=== PATIENT | female | born 1980 | race Caucasian/White ===

== ENCOUNTER → 2018-06-21 12:26 | Outpatient (CLI) | payer OTHER, SELFPAY ==
--- NOTE | 2018-06-21 12:32 | XR_ITS ---
XR foot LT min 3V HISTORY: ITS.REASON: pain ORDERING PHYSICIAN: Viola Lazaro PATIENT AGE: 38 years COMPARISON: None FINDINGS: There is a short fourth metatarsal. The phalanges of the fourth toe have an unremarkable appearance. There is some mild dorsiflexion of the fourth toe. No bony erosive process evident. IMPRESSION: Brachymetatarsia CT of the fourth metatarsal. This can be seen with trisomy 21, Alan syndrome, pseudohyperparathyroidism among other less common etiologies
[2018-06-21 13:15] LABS: Basophils % 0.5 % (0.1-2.0); Eosinophils # 0.2 K/mm3 (0.0-0.4); Eosinophils % 2.5 % (0.1-12.0); Hematocrit 40.2 % (37.0-47.0); Hemoglobin 13.2 g/dL (12.2-16.2); Lymphocytes # 2.5 K/mm3 (0.7-4.5); Lymphocytes % 35.8 % (10-50); Mean Corpuscular HGB Conc 32.8 g/dL (31.8-35.4); Mean Corpuscular Hemoglobin 32.1 pg (27.0-31.2); Mean Corpuscular Volume 97.8 fl (81-99); Mean Platelet Volume 7.4 fl (7.4-10.4); Monocytes # 0.4 K/mm3 (0.1-1.0); Monocytes % 5.2 % (1.7-9.3); Neutrophils # 3.9 K/mm3 (1.8-7.8); Platelet Count 314 K/mm3 (142-424); Red Blood Count 4.11 M/mm3 (4.20-5.40); Red Cell Distribution Width 12.9 % (11.5-17.5)
[2018-06-21 14:14] LABS: Erythrocyte Sedimentation Rate 16 mm/hr (0-20)
[2018-06-21 14:24] LABS: Alanine Aminotransferase 35 U/L (12-78); Albumin Level 3.7 gm/dL (3.4-5.0); Albumin/Globulin Ratio 1.1 (1.1-1.8); Alkaline Phosphatase 72 U/L (46-116); Anion Gap 12.4 mEq/L (5-15); Aspartate Amino Transferase 15 U/L (15-37); Bilirubin,Total 0.2 mg/dL (0.2-1.0); Blood Urea Nitrogen 8 mg/dL (7-18); C-Reactive Protein 1.2 mg/L (0.0-0.9); Calcium 9.1 mg/dL (8.5-10.1); Carbon Dioxide 28 mmol/L (21.0-32.0); Chloride 106 mmol/L (98-107); Creatinine,Serum 0.69 mg/dL (0.55-1.02); Estimated Glomerular Filt Rate 94 ml/min (>60); Free T4 (Free Thyroxine) 0.87 ng/dl (0.76-1.46); GFR (African American) 114 ML/MIN (>60); Globulin 3.3 gm/dl (1.3-3.2); Glucose 90 mg/dL (74-106); Potassium 4.4 mmoL/L (3.5-5.1); Sodium 142 mmol/L (136-145); Thyroid Stimulating Hormone 0.89 uIU/ml (0.358-3.740)
[2018-06-22 13:11] LABS: Anti-Centromere B Antibodies <0.2 AI (0.0-0.9); Anti-Jo-1 <0.2 AI (0.0-0.9); Anti-Smith Antibody <0.2 AI (0.0-0.9); Antichromatin Antibodies <0.2 AI (0.0-0.9); Antiscleroderma-70 Antibodies <0.2 AI (0.0-0.9); RNP Antibodies <0.2 AI (0.0-0.9); Sjogren's Anti-SS-A <0.2 AI (0.0-0.9); Sjogren's Anti-SS-B <0.2 AI (0.0-0.9)
[2018-06-23 02:50] LABS: PTT-LA 37.3 sec (0.0-51.9)
[2018-06-23 06:56] LABS: Anti-Cyclic Citrullinated Pept 9 units (0-19); Anti-DNA (DS) Ab Qn 1 IU/mL (0-9); RA Latex Turbid. <10.0 IU/mL (0.0-13.9); Vitamin D 25 Hydroxy 17.1 ng/mL (30.0-100.0)
[2018-06-23 06:57] LABS: Lupus Reflex Interpretation Comment: (.)
== END ==
PROVIDERS: PCP Emergency Medicine; Visit Provider Nurse Practitioner Family
DX: M25.562 Pain in left knee (principal); M25.561 Pain in right knee; M79.672 Pain in left foot; M25.50 Pain in unspecified joint; R53.83 Other fatigue; M79.89 Other specified soft tissue disorders
CPT/HCPCS: 36415; 73630; 80053; 82652; 83880; 84439; 84443; 85025; 85613; 85651; 86140; 86200; 86225; 86235; 86431

== ENCOUNTER → 2018-06-24 11:08 | Outpatient (CLI) | payer OTHER, SELFPAY ==
--- NOTE | 2018-06-24 11:46 | XR_ITS ---
XR knee LT 2V HISTORY: ITS.REASON: leg pain ORDERING PHYSICIAN: Jeremy Gibbs APRN PATIENT AGE: 38 years COMPARISON: None FINDINGS: Weightbearing views performed No fracture or dislocation. No lytic or blastic change. Normal mineralization. No significant arthritic changes evident. No other significant findings IMPRESSION: Negative Knee
--- NOTE | 2018-06-24 11:46 | XR_ITS ---
XR knee RT 2V HISTORY: ITS.REASON: leg pain ORDERING PHYSICIAN: Jeremy Gibbs APRN PATIENT AGE: 38 years COMPARISON: None FINDINGS: Weight bearing views are performed No fracture or dislocation. No lytic or blastic change. Normal mineralization. No significant arthritic changes evident. No other significant findings IMPRESSION: Negative Knee
--- NOTE | 2018-06-24 12:18 | NVE_ITS ---
Venous Exam Indications: 729.5 Pain in limb. IMPRESSIONS 1. There is no evidence of significant Reflux. 2. No evidence of deep or superficial vein thrombosis involving the right lower extremity and left lower extremity Complete lower extremity venous duplex evaluation. Doppler flow study including spectral analysis, color and finch scale imaging. Location: Vascular laboratory. Patient status: Outpatient. Tables: Venous flow and imaging: + +-------+ + Location Overall Flow properties + +-------+ + Right common femoral Patent Normal phasicity; spontaneous; normal augmentation; compressible + +-------+ + Right saphenofemoral junction Patent Compressible + +-------+ + Right profunda femoral Patent Compressible + +-------+ + Right femoral Patent Normal phasicity; spontaneous; normal augmentation; compressible; no reflux + +-------+ + Right greater saphenous Patent Normal phasicity; spontaneous; normal augmentation; compressible + +-------+ + Right popliteal Patent Normal phasicity; spontaneous; normal augmentation; compressible + +-------+ + Right posterior tibial Patent Compressible + +-------+ + Right peroneal Patent Compressible + +-------+ + Right gastrocnemius Patent Compressible + +-------+ + Right soleal Patent Compressible + +-------+ + Left common femoral Patent Normal phasicity; spontaneous; normal augmentation; compressible + +-------+ + Left saphenofemoral junction Patent Compressible + +-------+ + Left profunda femoral Patent Compressible + +-------+ + Left femoral Patent Normal phasicity; spontaneous; normal augmentation; compressible + +-------+ + Left greater saphenous Patent Normal phasicity; spontaneous; normal augmentation; compressible + +-------+ + Left popliteal Patent Normal phasicity; spontaneous; normal augmentation; compressible + +------
== END ==
PROVIDERS: PCP Emergency Medicine; Visit Provider Nurse Practitioner Family
DX: M79.605 Pain in left leg (principal); M79.604 Pain in right leg; M79.672 Pain in left foot; M25.562 Pain in left knee; M25.561 Pain in right knee
CPT/HCPCS: 73560; 93970

== ENCOUNTER 2018-06-25 20:08 | Emergency (ER) | payer OTHER, SELFPAY ==
[2018-06-25 20:09] VITALS: BP 108/61; PULSE 75; RESP 16; TEMP 36.8; O2SAT 98; BMI 28.8
--- NOTE | 2018-06-25 21:48 | CT_ITS ---
CT lumbar spine w con INDICATION: Bilateral leg pain, pain in size ITS.REASON: bilateral leg pain ORDERING PHYSICIAN: Florencio Blanco MD PATIENT AGE: 38 years COMPARISON: None TECHNIQUE: Axial images obtained with sagittal and coronal reformats. All CT scans at the facility use one or more dose reduction, viz: automated exposure control, ma/kV adjustment per patient size (including targeted exams where dose is matched to indication, i.e. head), or iterative reconstruction technique. FINDINGS: There is normal curvature and alignment. All lumbar vertebrae appear intact. Disc spaces are well maintained throughout. The spinal canal is normal size throughout the lumbar spine. The L1-2, L2-3 and L3-4 disc appear normal. There is a small to moderate focal central disc protrusion L4-5 causing only slight narrowing of the neural foramina bilaterally. There is a mild diffuse disc bulge L5-S1. There is no significant facet hypertrophy. IMPRESSION: Gxsli-we-pluvyhza sized central disc protrusion L4-5 and mild diffuse disc bulge L5-S1, I basically agree with the [facility] report
--- NOTE | 2018-06-25 21:48 | CT_ITS ---
CT abdomen pelvis w con INDICATION: . Leg pain. Pelvic pain. ITS.REASON: bilateral leg pain ORDERING PHYSICIAN: Florencio Blanco MD PATIENT AGE: 38 years COMPARISON: L-spine from today . TECHNIQUE: 75 cc Optiray the right 350. No oral contrast. Axial images obtained with sagittal and coronal reformats. All CT scans at the facility use one or more dose reduction, viz: automated exposure control, ma/kV adjustment per patient size (including targeted exams where dose is matched to indication, i.e. head), or iterative reconstruction technique. FINDINGS: Lower thorax. The lung bases are clear no active disease. Heart normal size Abdomen Liver.: A low-density area is seen at the dome of the left lobe low-density. This ovoid well delineated area measures up to 2.8 cm transverse x 2 cm AP x 2 cm height. Suggest ultrasound as next up and further evaluate. It is not a cyst then then follow-up CT evidence in 3 months with hemangioma protocol would be in order; or MRI liver Cholecystectomy. No significant biliary ductal dilatation. Pancreas appears satisfactory. No lesion no ductal dilatation. Spleen unremarkable. Adrenals unremarkable. TRACT. kidneys appear normal in size and configuration. No calculi nor obstruction . Ureters are unremarkable. Pelvis. uterus generous size measuring 8.4 seem in length. Period generous endometrial stripe measuring over 1 cm AP. Mild enhancement about the base the endometrial, likely reflect phase of menstrual cycle. Generous pelvic veins. Right ovary 3 cm with numerous follicles. Left ovary slightly smaller. GI TRACT. Colonic diverticulosis. Numerous diverticuli most evident throughout the sigmoid colon with a few at the left colon. No diverticulitis. Moderate stool right and transverse colon. Appendix is normal. Terminal ileum unremarkable. No pelvic adenopathy no retroperitoneal nor mesenteric adenopathy. Small bowel. Slight fluid-filled proximal small bowel loops which are upper normal in caliber. Stomach- moderately distended with fluid and food. Osseous. Referred to the CT lumbar report. Again note Moderate central disc protrusion L4/5. ...IMPRESSION.......... 1. No acute findings abdomen or pelvis.Appendix normal. ... No bowel dilatation nor obstruction. Upper normal fluid proximal small bowel. ... No adenopathy or significant mass. 2.Low-density lesion dome of of left lobe of liver. 28mm x 20 mmx 12 mm.. Suggest ultrasound as next up to further survey. If solid & not benign hepatic cyst) may require follow-up CT or MR 3.. Central disc protrusion L4/5 again noted as discussed on CT lumbar report 4. Colonic diverticulosis most evident sigmoid colon. No Diverticulitis. 5. Moderately distended fluid &/food filled stomach noted. Slight increase fluid proximal small bowel currently..
[2018-06-25 21:53] LABS: Microscopic, Urine URINE MICROSCOPIC (MICROSCOPIC)
[2018-06-25 21:56] LABS: Appearance,Urine CLEAR (Clear); Bilirubin,Urine Negative (Negative); Blood, Urine Negative (Negative); Color,Urine YELLOW (Yellow); Glucose,Urine (UA) Negative (Negative); Ketones,Urine Negative (Negative); Leukocyte Esterase,Urine Negative (Negative); Nitrate,Urine Negative (Negative); Protein,Urine Negative (Negative); Specific Gravity, Urine 1.015 (1.005-1.030); Urobilinogen,Urine 0.2 EU/dl (0.2)
[2018-06-25 21:58] LABS: Basophils % 0.3 % (0.1-2.0); Eosinophils # 0.1 K/mm3 (0.0-0.4); Eosinophils % 0.5 % (0.1-12.0); Hematocrit 40.1 % (37.0-47.0); Hemoglobin 13.4 g/dL (12.2-16.2); Lymphocytes # 3.4 K/mm3 (0.7-4.5); Mean Corpuscular HGB Conc 33.5 g/dL (31.8-35.4); Mean Corpuscular Hemoglobin 31.7 pg (27.0-31.2); Mean Corpuscular Volume 94.8 fl (81-99); Mean Platelet Volume 7.3 fl (7.4-10.4); Monocytes # 0.6 K/mm3 (0.1-1.0); Monocytes % 4.7 % (1.7-9.3); Neutrophils # 8.5 K/mm3 (1.8-7.8); Neutrophils % 67.5 % (37.0-80.0); Platelet Count 360 K/mm3 (142-424); Red Blood Count 4.23 M/mm3 (4.20-5.40); Red Cell Distribution Width 12.9 % (11.5-17.5); White Blood Count 12.7 K/mm3 (4.8-10.8)
[2018-06-25 21:59] LABS: Urine Pregnancy, HCG Qual. Negative (Negative)
[2018-06-25 22:03] LABS: Bacteria,Urine 1+ /lpf; WBC,Urine Occasional #/hpf (0-3)
--- NOTE | 2018-06-25 22:05 | [facility].EDGENADL ---
ED Disposition Clinical Impression: Lumbar disc disease with radiculopathy Disposition: Home, Self-Care Condition on Discharge: Good Instructions: DI for Lumbar Radiculopathy Additional Instructions: use meds and see pcp for follow up Prescriptions: Gabapentin [Neurontin 100mg cap] 100 mg PO TID #30 cap Referrals: Florencio Blanco MD [Primary Care Provider] - - Critical Care Critical Care Time: No Attestation: On 06/25/18, the high probability of a clinically significant, sudden or life threatening deterioration of the following system(s) required my full and direct attention, intervention and personal management. The time I documented below is in addition to time spent performing reported procedures but includes the following listed in this critical care notation. Medical Decision Making - Medical Records Medical records reviewed: Yes: I reviewed the patient's medical records. - See Inquiry Pt receiving controlled substance: No Vital Signs: 06/25/18 20:09 06/25/18 22:09 06/25/18 23:30 Temperature 98.2 F Temperature Source Oral Pulse Rate [Right Brachial] 75 70 59 L Respiratory Rate 16 20 16 Blood Pressure [Right Arm] 108/61 L 120/67 109/68 L Blood Pressure Mean [Right Arm] 76 84 81 Blood Pressure Source [Right Arm] Automatic Cuff Automatic Cuff Automatic Cuff Blood Pressure Position [Right Arm] Sitting Sitting Sitting 02 Sat by Pulse Oximetry 98 100 100 Oxygen Delivery Method Room Air Room Air Room Air - Lab Data Lab results reviewed: Yes: I reviewed the patient's lab results. Lab Results 06/25/18 20:39: Urine Color Yellow, Urine Appearance Clear, Urine pH 6.0, Ur Specific [place] 1.015, Urine Protein Negative, Urine Glucose (UA) Negative, Urine Ketones Negative, Urine Blood Negative, Urine Nitrate Negative, Urine Bilirubin Negative, Urine Urobilinogen 0.2, Ur Leukocyte Esterase Negative, Urine WBC Occasional, Ur Squamous Epith Cells 5-10, Urine Bacteria 1+ 06/25/18 20:39: WBC 12.7 H, RBC 4.23, Hgb 13.4, Hct 40.1, MCV 94.8, MCH 31.7 H, MCHC 33.5, RDW 12.9, Plt Count 360, MPV 7.3 L, Neut % (Auto) 67.5, Lymph % (Auto) 27.0, [place] % (Auto) 4.7, Eos % (Auto) 0.5, Baso % (Auto) 0.3, Neut # (Auto) 8.5 H, Lymph # (Auto) 3.4, [place] # (Auto) 0.6, Eos # (Auto) 0.1, Baso # (Auto) 0.0, ESR 13 06/25/18 20:39: Urine HCG, Qual Negative 06/25/18 20:39: Sodium 139, Potassium 3.6, Chloride 104, Carbon Dioxide 28, Anion Gap 10.6, BUN 12, Creatinine 0.78, Estimated Creat Clear 95, Estimated GFR 82, Est GFR ( Amer) 99, Glucose 88, Calcium 8.9, Total Bilirubin 0.1 L, AST 13 L, ALT 32, Alkaline Phosphatase 62, C-Reactive Protein < 0.2, Total Protein 7.4, Albumin 3.8, Globulin 3.6 H, Albumin/Globulin Ratio 1.1 Result diagrams: 06/25/18 20:39 06/25/18 20:39 Orders (Tests/Meds): ED MEDICATIONS Discontinued Medications Generic Name Dose Route Start Last Admin Trade Name Freq PRN Reason Stop Dose Admin Ioversol 150 ml 06/25/18 23:15 06/25/18 23:17 Rad-Optiray 350 100ml Vial IV 06/25/18 23:16 150 ml ONCE ONE Administration Protocol Sodium Chloride 20 ml 06/25/18 23:15 06/25/18 23:17 Rad-Saline Flush 10ml Syringe IV 06/25/18 23:16 20 ml ONCE ONE Administration ORDERS Category Date Time Status CT abdomen pelvis w con Stat Cat Scan 06/25/18 21:[address] lumbar spine w con Stat Cat Scan 06/25/18 21:48 Taken - CT Data CT Scan: Abdomen, Pelvis, L-Spine Time Received: 23:[address] Reviewed: Yes: I have viewed the radiologist's interpretation Preliminary Findings: Abnormal (see report ), No Fracture Seen General Adult HPI - General Chief complaint: PAIN Stated complaint: Pain both legs Time Seen by Provider: 06/25/18 21:40 Mode of Arrival: Ambulatory Source of Information: Patient, Significant Other, Medical Record Limitations: No Limitations Description of Symptoms (Recalled from ER Triage Doc. by RN): Pt c/o bilateral leg pain from her thighs up. Advises
[2018-06-25 22:08] LABS: Alanine Aminotransferase 32 U/L (12-78); Albumin Level 3.8 gm/dL (3.4-5.0); Albumin/Globulin Ratio 1.1 (1.1-1.8); Alkaline Phosphatase 62 U/L (46-116); Anion Gap 10.6 mEq/L (5-15); Aspartate Amino Transferase 13 U/L (15-37); Bilirubin,Total 0.1 mg/dL (0.2-1.0); Blood Urea Nitrogen 12 mg/dL (7-18); C-Reactive Protein < 0.2 mg/L (0.0-0.9); Calcium 8.9 mg/dL (8.5-10.1); Carbon Dioxide 28 mmol/L (21.0-32.0); Chloride 104 mmol/L (98-107); Creatinine Clearance Estimated 95 mL/min (50-200); Creatinine,Serum 0.78 mg/dL (0.55-1.02); Estimated Glomerular Filt Rate 82 ml/min (>60); GFR (African American) 99 ML/MIN (>60); Globulin 3.6 gm/dl (1.3-3.2); Glucose 88 mg/dL (74-106); Potassium 3.6 mmoL/L (3.5-5.1); Sodium 139 mmol/L (136-145); Total Protein,Serum 7.4 gm/dL (6.4-8.2)
[2018-06-25 22:09] VITALS: BP 120/67; PULSE 70; RESP 20; O2SAT 100
--- NOTE | 2018-06-25 22:34 | PC.NURSE ---
pt gone to CT
[2018-06-25 22:39] LABS: Erythrocyte Sedimentation Rate 13 mm/hr (0-20)
--- NOTE | 2018-06-25 23:02 | PC.NURSE ---
Pt returned from CT
[2018-06-25 23:30] VITALS: BP 109/68; PULSE 59; RESP 16; O2SAT 100
[2018-06-26 00:11] VITALS: BP 109/68; PULSE 59; RESP 16; TEMP 36.8; O2SAT 100
== END 2018-06-26 00:10 | disposition home or self-care (01) ==
PROVIDERS: Emergency Provider Emergency Medicine; PCP Emergency Medicine
DX: M51.16 Intervertebral disc disorders with radiculopathy, lumbar region (principal); F17.210 Nicotine dependence, cigarettes, uncomplicated
CPT/HCPCS: 72132; 74177; 80053; 81001; 81025; 85025; 85651; 86140; 99283; Q9967

== ENCOUNTER → 2018-07-15 09:54 | Outpatient (CLI) | payer OTHER, SELFPAY ==
--- NOTE | 2018-07-15 09:58 | XR_ITS ---
XR knee RT 4V HISTORY: ITS.REASON: right knee pain/ 4views weightbearing ORDERING PHYSICIAN: Stephen Pablo MD PATIENT AGE: 38 years COMPARISON: None FINDINGS: No fracture or dislocation. No lytic or blastic change. Normal mineralization. No significant arthritic changes evident. No other significant findings IMPRESSION: Negative Knee
--- NOTE | 2018-07-15 09:58 | XR_ITS ---
XR knee LT 4V HISTORY: Left knee pain ITS.REASON: left knee pain/ 4 views weightbearing ORDERING PHYSICIAN: Stephen Pablo MD PATIENT AGE: 38 years COMPARISON: None FINDINGS: No fracture or dislocation. No lytic or blastic change. Normal mineralization. No significant arthritic changes evident. No other significant findings IMPRESSION: Negative Knee
== END ==
PROVIDERS: PCP Emergency Medicine; Visit Provider Orthopaedic Surgery
DX: M25.561 Pain in right knee (principal); M25.562 Pain in left knee
CPT/HCPCS: 73564

== ENCOUNTER → 2018-07-29 07:59 | Outpatient (CLI) | payer OTHER, SELFPAY ==
--- NOTE | 2018-07-29 08:00 | MR_ITS ---
MR lumbar spine wo con, MR 3-d myelogram/MRCP HISTORY: LBP. Intermittent Bilateral leg pain when walking. [id number]. No trauma. ITS.REASON: Low back pain ORDERING PHYSICIAN: Jeremy Gibbs APRN PATIENT AGE: 38 years Comparison: CT 06-25-18. TECHNIQUE: Standard multiplanar multiecho sequences are performed without contrast. 3-D MIP and myelographic images are also rendered and reviewed FINDINGS: There is normal alignment. The spinal cord ends at the L1-L2 level. L1-L2: Unremarkable. L2-L3: Mild facet hypertrophic change. L3-L4: Mild facet hypertrophic change. L4-5: Bulging disc with a small central disc protrusion very slightly eccentric toward the left. No nerve displacement. There is disc desiccation at this level. There is mild facet and ligamentum flavum hypertrophy with mild bilateral the lateral recess and foraminal narrowing. L5-S1: Minimal bulging disc. No fracture or dislocation. No lytic or blastic change IMPRESSION: 1. Bulging disc at L4-5 with a small central disc protrusion very slightly eccentric toward the left. No nerve displacement. There is disc desiccation with mild facet and ligamentum flavum hypertrophy and with mild bilateral the lateral recess and foraminal narrowing. 2. Minimal bulging at L5-S1. 3. Mild facet and ligamentum flavum hypertrophic changes
== END ==
PROVIDERS: PCP Emergency Medicine; Visit Provider Nurse Practitioner Family
DX: M51.16 Intervertebral disc disorders with radiculopathy, lumbar region (principal)
CPT/HCPCS: 72148; 76376

== ENCOUNTER → 2018-08-31 13:37 | Outpatient (CLI) | payer OTHER, SELFPAY ==
[2018-08-31 14:09] LABS: Amphetamine/Metha Screen,Urine Negative ng/mL (<1000); Barbiturates Screen,Urine Negative ng/mL (<200); Benzodiazepines Screen,Urine Negative ng/mL (<200); Cannabinoid Screen,Urine Positive ng/mL (<50); Cocaine Screen,Urine Negative ng/mL (<300); Methadone Screen,Urine Negative ng/mL (<300); Opiate Screen,Urine Negative ng/mL (<300); Phencyclidine Screen,Urine Negative ng/mL (<25)
== END ==
PROVIDERS: Visit Provider Nurse Practitioner Family
DX: Z79.899 Other long term (current) drug therapy (principal)
CPT/HCPCS: 80305

== ENCOUNTER → 2019-01-12 14:58 | Outpatient (CLI) | payer OTHER, SELFPAY ==
--- NOTE | 2019-01-12 15:02 | XR_ITS ---
PROCEDURE: XR RIBS LT MIN 3V W CXR1V CLINICAL INDICATION: Left rib injury Posttraumatic pain COMPARISON: No exams were available for comparison FINDINGS: A frontal view of the chest shows no acute finding. Multiple views of the left ribs were obtained. There is some minimal cortical regularity involving the posterior lateral aspect of the left 9th rib which may be due to nondisplaced fracture. No displaced rib fractures or other significant anomalies are evident. IMPRESSION: Possible nondisplaced fracture left 9th rib otherwise negative Dictated by: Agapito To MD 01/12/2019 16:02 Electronically signed by Agapito To MD in [place] 01/12/2019 16:02
== END ==
PROVIDERS: PCP Emergency Medicine; Visit Provider Nurse Practitioner Family
DX: R07.81 Pleurodynia (principal)
CPT/HCPCS: 71101

== ENCOUNTER → 2020-03-07 10:44 | Outpatient (CLI) | payer OTHER, SELFPAY ==
--- NOTE | 2020-03-07 10:51 | XR_ITS ---
PROCEDURE: XR CHEST 2V CLINICAL HISTORY: R Post rib pain COMPARISON: CR XR RIBS LT MIN 3V W CXR1V from 01/12/2019 FINDINGS: The cardiomediastinal silhouette and pulmonary vascularity are within normal limits. The lungs are clear without infiltrates, suspicious nodules, or pleural effusions. No acute bony abnormalities. There is no obvious acute rib fracture however right rib fractures are strongly suspected clinically than oblique right rib films would be helpful. IMPRESSION: No acute findings. Dictated by: Dr. Rudy Carter MD 03/07/2020 11:17 Dr. Rudy Carter MD in [place] 03/07/2020 11:17
== END ==
PROVIDERS: PCP Nurse Practitioner Family; Visit Provider Nurse Practitioner Family
DX: F17.200 Nicotine dependence, unspecified, uncomplicated (principal)
CPT/HCPCS: 71046

== ENCOUNTER → 2020-05-01 09:19 | Outpatient (CLI) | payer OTHER, SELFPAY ==
[2020-05-02 09:50] LABS: Coronavirus 19 IgG Antibody Negative (Negative); Coronavirus 19 IgM Antibody Negative (Negative)
== END ==
PROVIDERS: Visit Provider Nurse Practitioner Family
DX: Z20.822 Contact with and (suspected) exposure to COVID-19 (principal)
CPT/HCPCS: 86328

== ENCOUNTER → 2020-05-01 14:47 | Outpatient (CLI) | payer OTHER, SELFPAY | PROVIDERS: PCP Nurse Practitioner Family; Visit Provider Nurse Practitioner Family | DX: Z20.822 Contact with and (suspected) exposure to COVID-19 (principal) | CPT/HCPCS: U0003 ==

== ENCOUNTER → 2020-05-02 13:05 | Outpatient (CLI) | payer OTHER, SELFPAY ==
[2020-05-02 13:08] LABS: Adenovirus F 40/41, stool Not Detected (NotDetected); Astrovirus Not Detected (NotDetected); Campylobacter Not Detected (NotDetected); Clostridium Difficile A/B, PCR Not Detected (NotDetected); Cryptosporidium Not Detected (NotDetected); Cyclospora Cayetanesis Not Detected (NotDetected); Entamoeba histolytica Not Detected (NotDetected); Enteroaggregative E coli Not Detected (NotDetected); Enteropathogenic E coli Not Detected (NotDetected); Enterotoxigenic E coli Not Detected (NotDetected); Giardia lamblia Not Detected (NotDetected); Norovirus Not Detected (NotDetected); Plesimonas Shigalloides, PCR Not Detected (NotDetected); Rotavirus A Not Detected (NotDetected); Salmonella, PCR Not Detected (NotDetected); Sapovirus Not Detected (NotDetected); Shiga-like toxin E coli Not Detected (NotDetected); Shigella Enterovasive E coli Not Detected (NotDetected); Vibrio Cholerae Not Detected (NotDetected); Vibrio, PCR Not Detected (NotDetected); Yersinia Entercolitica, PCR Not Detected (NotDetected)
== END ==
PROVIDERS: Visit Provider Nurse Practitioner Family
DX: R19.7 Diarrhea, unspecified (principal); R50.9 Fever, unspecified
CPT/HCPCS: 87507

== ENCOUNTER → 2020-07-12 09:38 | Outpatient (CLI) | payer OTHER, SELFPAY ==
--- NOTE | 2020-07-12 09:38 | MM_ITS ---
PROCEDURE INFORMATION: Exam: MG Screening 3D Mammography Exam date and time: 07/12/2020 9:38 AM Age: 40 years old Clinical indication: Breast cancer screening TECHNIQUE: Imaging protocol: Screening tomosynthesis and 2D mammography including computer-aided detection (CAD) when performed. COMPARISON: No relevant prior studies available. FINDINGS: MAMMOGRAPHY: Breast composition: The breast tissue is composed of scattered areas of fibroglandular density. Mass: None. Architectural distortion: None. Calcifications: No suspicious calcifications. Asymmetric density: None. Skin thickening: None. Axillary adenopathy: None. IMPRESSION: No mammographic evidence of malignancy. Annual screening is recommended unless otherwise clinically indicated. ASSESSMENT: BI-RADS Category 1: Negative
== END ==
PROVIDERS: PCP Nurse Practitioner Family; Visit Provider Nurse Practitioner Family
DX: Z12.31 Encounter for screening mammogram for malignant neoplasm of breast (principal)
CPT/HCPCS: 77063; 77067

== ENCOUNTER → 2020-08-28 13:42 | Outpatient (CLI) | payer OTHER, SELFPAY ==
[2020-08-28 13:54] LABS: Basophils # 0.1 K/mm3 (0-0.2); Basophils % 0.7 % (0.1-2.0); Eosinophils # 0.2 K/mm3 (0.0-0.4); Eosinophils % 1.8 % (0.1-12.0); Hematocrit 42.7 % (37.0-47.0); Hemoglobin 14.4 g/dL (12.2-16.2); Lymphocytes # 2.9 K/mm3 (0.7-4.5); Lymphocytes % 30.8 % (10-50); Mean Corpuscular HGB Conc 33.8 g/dL (31.8-35.4); Mean Corpuscular Hemoglobin 32.1 pg (27.0-31.2); Mean Platelet Volume 8.3 fl (7.4-10.4); Monocytes # 0.6 K/mm3 (0.1-1.0); Monocytes % 6.3 % (1.7-9.3); Neutrophils # 5.6 K/mm3 (1.8-7.8); Neutrophils % 60.4 % (37.0-80.0); Platelet Count 380 K/mm3 (142-424); Red Blood Count 4.49 M/mm3 (4.20-5.40); Red Cell Distribution Width 13.1 % (11.5-17.5); White Blood Count 9.3 K/mm3 (4.8-10.8)
[2020-08-28 13:59] LABS: Alanine Aminotransferase 20 U/L (12-78); Albumin Level 4.4 g/dl (3.5-5.0); Albumin/Globulin Ratio 1.6 (1.1-1.8); Alkaline Phosphatase 72 U/L (38-126); Aspartate Amino Transferase 23 U/L (14-36); Bilirubin,Total 0.5 mg/dl (0.2-1.3); Blood Urea Nitrogen 10 mg/dl (7-17); Calcium 9.4 mg/dl (8.4-10.2); Carbon Dioxide 29 mmol/L (22.0-30.0); Chloride 105 mmol/L (98-107); Cholesterol 187 mg/dl (140-200); Estimated Glomerular Filt Rate 92 ml/min (>60); GFR (African American) 111 ML/MIN (>60); Globulin 2.8 g/dL (1.3-3.2); Glucose 87 mg/dl (74-100); HDL Cholesterol 47 mg/dl (40-60); Sodium 139 mmol/L (136-145); Total Protein,Serum 7.2 g/dl (6.3-8.2); Triglycerides 136 mg/dl (30-150); VLDL Cholesterol 27 mg/dL (0-40)
[2020-08-28 14:10] LABS: Direct LDL Cholesterol 119.68 mg/dL (100-129)
[2020-08-28 14:15] LABS: 25-OH Vitamin D, Total 21.5 ng/mL (30-100)
[2020-08-28 14:16] LABS: T4 (Thyroxine) 7.7 ug/dl (5.53-11.0)
[2020-08-28 14:30] LABS: Thyroid Stimulating Hormone 0.78 uIU/mL (0.465-4.68)
== END ==
PROVIDERS: Visit Provider Nurse Practitioner Family
DX: R07.9 Chest pain, unspecified (principal); E55.9 Vitamin D deficiency, unspecified
CPT/HCPCS: 80053; 80061; 82306; 84436; 84443; 85025

== ENCOUNTER → 2020-09-10 13:33 | Outpatient (CLI) | payer OTHER, SELFPAY ==
--- NOTE | 2020-09-10 14:19 | CA_ITS ---
APPROVED REPORT Exam: Exercise Treadmill Technologist: Aditi Albarran, Ht: 5 ft 4 in Wt: 142 lbs BSA: 1.69 m2 HR: 76 bpm BP: 110/63 mmHg Medical History Medications: Albuterol,,,,, Stress Test Details Test: Kt HR Resting HR: 83 bpm Max Heart Rate (APMHR): 178.498701 bpm Max HR Achieved: 150 bpm Target HR (85% APMHR): 151.081072 bpm % of APMHR: 84.27 Recovery HR: 86 bpm BP Resting BP: 118/76 mmHg Max BP: 154/76 mmHg Recovery BP: 118.0/74.0 mmHg ECG Resting ECG: NSR, normal Clinical Exercise duration: 06:52 min Highest Stage Achieved: Exercise capacity: 10.1 METs Stress ECG Conclusion Exercised 6:52 on Kt Protocol, stopping due to leg pain/fatigue. Max HR: 150 %of PM: 84% Max BP: 154/76 METs': 10.1 Test stopped due to: Leg pain/fatigue Symptoms: No CP Arrythmias/Ectopy: None ST-T Changes: within normal ST response to exercise Conclusion: Normal GXT to HR achieved. GXT only (no imaging). Test Summary RECOVERY 02:00 0.0 0.0 108 . 154/ 76 . . Stage 1 01:00 10.0 1.7 110 . . . . Stage 1 02:00 10.0 1.7 119 . . . . Stage 1 03:00 10.0 1.7 119 . 135/ 80 . . Stage 2 01:00 12.0 2.5 132 . . . . Stage 2 02:00 12.0 2.5 138 . . . . Stage 2 03:00 12.0 2.5 141 . 150/ 78 . . Stage 3 00:52 14.0 3.4 149 . . . Stop exercise at 06:52 RECOVERY 01:00 0.0 0.0 120 . 154/ 76 . . RECOVERY 02:00 0.0 0.0 108 . 154/ 76 . . RECOVERY 03:00 0.0 0.0 94 . 127/ 75 . . RECOVERY 04:00 0.0 0.0 90 . 127/ 75 . . RECOVERY 05:00 0.0 0.0 86 . 118/ 74 . . RECOVERY 05:18 0.0 0.0 87 . 118/ 74 . . Electronically signed by : Jovanni Gilliland, 09/10/2020 17:39:08
== END ==
PROVIDERS: PCP Nurse Practitioner Family; Visit Provider Nurse Practitioner Family
DX: R07.9 Chest pain, unspecified (principal)
CPT/HCPCS: 93017; 93306

== ENCOUNTER → 2020-09-26 14:40 | Outpatient (CLI) | payer OTHER, SELFPAY ==
--- NOTE | 2020-09-26 14:41 | CT_ITS ---
PROCEDURE: CT CHEST WO CON CLINICAL INDICATION: chest pain And cough COMPARISON: No exams were available for comparison TECHNIQUE: Axial images obtained with sagittal and coronal reformats. All CT scans at the facility use one or more dose reduction, viz: automated exposure control, ma/kV adjustment per patient size (including targeted exams where dose is matched to indication, i.e. head), or iterative reconstruction technique. FINDINGS: HEART AND MEDIASTINAL STRUCTURES: Cardiac size is normal and the aorta appears normal. There are prominently calcified right paratracheal nodes a couple of calcified right hilar nodes. LUNGS AND PLEURAL SPACES: The lung cabezas are well-expanded appear clear of infiltrate. There is a calcified granuloma right upper lobe and there are 2 small calcified granulomata left lower lobe. There is no pleural fluid. BONY STRUCTURES: There are mild multilevel degenerate changes midthoracic spine. UPPER ABDOMEN: Post cholecystectomy ADDITIONAL FINDINGS: No other significant abnormalities. IMPRESSION: Evidence of old granulomatous disease, no other significant abnormality noted Dictated by: Dr. Rudy Carter MD 09/26/2020 15:53 Dr. Rudy Carter MD in [place] 09/26/2020 15:53
== END ==
PROVIDERS: PCP Nurse Practitioner Family; Visit Provider Physician Assistant
DX: R07.9 Chest pain, unspecified (principal); Z72.0 Tobacco use; Z82.49 Family history of ischemic heart disease and other diseases of the circulatory system
CPT/HCPCS: 71250

== ENCOUNTER 2021-03-22 14:06 | Emergency (ER) | payer OTHER, SELFPAY ==
[2021-03-22 15:10] VITALS: BP 104/66; PULSE 73; RESP 18; TEMP 36.6; O2SAT 98; BMI 29.2
--- NOTE | 2021-03-22 15:16 | XR_ITS ---
FINAL REPORT CLINICAL HISTORY: cough COMPARISON: March 07, 2020 FINDINGS: Two views of the chest were obtained. The heart size and pulmonary vascularity are within normal limits. The mediastinum is normal. No acute pulmonary abnormality is identified. There is no pneumothorax. The bony thorax is intact. IMPRESSION: No active cardiopulmonary disease. Reviewed, Interpreted and Dictated by Jose Angel Villalta III, MD Transcribed by Sandra Kearney Authenticated by Jose Angel Villalta III, MD on 03/22/2021 04:07:55 PM [facility]
[2021-03-22 15:26] LABS: UTC Influenza A Antigen Negative (Negative); UTC Influenza B Antigen Negative (Negative); UTC Strep Screen (Rapid) Positive (Negative)
--- NOTE | 2021-03-22 15:36 | [facility].EDUTC ---
[facility] [place] Clinical Impression: St[place] Disposition: Home, Self-Care Condition on Discharge: Good Instructions: Strep Throat, DI for Strep Throat Additional Instructions: Drink plenty of fluids. Take tylenol or ibuprofen for pain or fever. Take the medications as directed. Follow up with your regular doctor. GO TO THE ER FOR ANY WORSENING SYMPTOMS Throw your tooth brush away and get a new one. The cough medication (promethazine dm) will make you drowsy, so don't drive or operate heavy machinery after taking it. Prescriptions: Promethazine/Dextromethorphan [Promethazine-Dm Syrup] 5 ml PO Q6HP PRN #240 ml PRN Reason: Cough Transmission Status: Received by [facility] methylPREDNISolone [Medrol] 4 mg PO DIRECTED 6 Days #21 packet Transmission Status: Received by [facility] guaiFENesin [Mucinex 600mg tablet] 1 - 2 tab PO BIDP PRN #30 tab PRN Reason: Congestion Transmission Status: Received by [facility] Azithromycin [Z-Mukund 250mg Tab*] 250 mg PO UD DOSE PK #6 tab Transmission Status: Received by [facility] Referrals: Jeremy Gibbs APRN [Primary Care Provider] - Forms: Work/School Release Time of Disposition: 16:19 Medical Decision Making - Medical Records Medical records reviewed: No: I reviewed the patient's medical records. - See Inquiry Pt receiving controlled substance: No Vital Signs: 03/22/21 15:10 03/22/21 16:47 Temperature 97.9 F 97.9 F Temperature Source Oral Pulse Rate 73 Pulse Rate [Left] 73 Respiratory Rate 18 18 Blood Pressure 104/66 L Blood Pressure [Right Arm] 104/66 L Blood Pressure Mean [Right Arm] 78 02 Sat by Pulse Oximetry 98 - Lab Data Lab results reviewed: Yes: I reviewed the patient's lab results. Lab Results 03/22/21 15:23: Influenza Type A Ag Negative, Influenza Type B Ag Negative 03/22/21 15:23: Strep Scn Rapid Clinic Positive [place] [facility] [place] - General Stated complaint: covid test/treated for symptoms Time Seen by Provider: 03/22/21 16:15 Mode of Arrival: Ambulatory Source of Information: Patient Limitations: No Limitations Description of Symptoms (Recalled from Triage Doc. by RN): pt c/o a MURRAY, body aches, chills, fever, L ear ache, diarrhea, congestion and a productive cough with brownish yellow sputum. x2 days. HEENT Symptoms (Recalled from RN notes): Yes (sore throat, L ear ache, MURRAY and congestion) Resp Symptoms (Recalled from RN notes): Yes (productive cough with brownish yellow sputum) Skin Symptoms (Recalled from RN notes): No MS Symptoms (Recalled from RN notes): No Functional Status (Recalled from RN notes): wnl - History of Present Illness Provider Complaint: She states that she has had a sore throat, cough, chest congestion and sinus congestion for the past 4 days. - Related Data Home Medications Medication Instructions Recorded Confirmed albuterol sulfate 90 mcg/actuation 2 inh INHALATION Q6H PRN 05/01/20 09/13/20 breath activated powder inhaler Previous Rx's Medication Instructions Recorded cholecalciferol (vitamin D3) 1,250 1,250 mcg PO WEEKLY #7 tab 08/29/20 mcg (50,000 unit) tablet cholecalciferol (vitamin D3) 50 50 mcg PO DAILY 30 Days #30 cap 08/29/20 mcg (2,000 unit) capsule Azithromycin [Z-Mukund 250mg Tab*] 250 mg PO UD DOSE PK #6 tab 03/22/21 Promethazine/Dextromethorphan 5 ml PO Q6HP PRN #240 ml 03/22/21 [Promethazine-Dm Syrup] guaiFENesin [Mucinex 600mg tablet] 1 - 2 tab PO BIDP PRN #30 tab 03/22/21 methylPREDNISolone [Medrol] 4 mg PO DIRECTED 6 Days #21 03/22/21 packet Allergies Allergy/AdvReac Type Severity Reaction Status Date / Time codeine Allergy Mild Verified 09/13/20 09:45 naproxen [From Aleve] Allergy Mild Verified 09/13/20 09:45 - Worker's Comp Is this a Worker's Comp case?: No [facility] History - Hepatitis A Screen Drug use history?: No High risk sexual behaviors?: No History of sexually transmitted infe
[2021-03-22 16:47] VITALS: BP 104/66; PULSE 73; RESP 18; TEMP 36.6
== END 2021-03-22 16:49 | disposition home or self-care (01) ==
PROVIDERS: Emergency Provider Nurse Practitioner Family; PCP Nurse Practitioner Family
DX: J02.9 Acute pharyngitis, unspecified (principal); Z20.822 Contact with and (suspected) exposure to COVID-19
CPT/HCPCS: 71046; 87804; 87880; 99202; C9803; G0463; U0003; U0005

== ENCOUNTER 2021-04-10 10:47 | Emergency (ER) | payer OTHER, SELFPAY ==
[2021-04-10 12:28] VITALS: BP 144/107; PULSE 69; RESP 18; TEMP 36.6; O2SAT 99; BMI 30.2
--- NOTE | 2021-04-10 12:42 | HMH.EDUTC ---
[facility] Disposition Clinical Impression: Viral syndrome, Close exposure to COVID-19 virus, Bronchitis Disposition: Home, Self-Care Condition on Discharge: Good Instructions: Preventing the Spread of Coronavirus Discharge Instructions, DI for COVID-19 (Suspected or Confirmed ), DI for Viral Syndrome Additional Instructions: Drink plenty of fluids. Take tylenol or ibuprofen for pain or fever. Take the medications as directed. Follow up with your regular doctor. GO TO THE ER FOR ANY WORSENING SYMPTOMS Quarantine until you know the results of your covid-19 test. Notify your school or workplace of your results and follow their instructions regarding return to work/school. Prescriptions: Benzonatate [Benzonatate 100mg cap] 100 mg PO TIDP PRN #30 cap PRN Reason: Cough Transmission Status: Pending to [facility] methylPREDNISolone [Medrol] 4 mg PO DIRECTED 6 Days #21 packet Transmission Status: Pending to [facility] Azithromycin [Z-Mukund 250mg Tab*] 250 mg PO UD DOSE PK #6 tab Transmission Status: Pending to [facility] Referrals: Jeremy Gibbs APRN [Primary Care Provider] - Forms: Work/School Release Time of Disposition: 13:05 Medical Decision Making - Medical Records Medical records reviewed: No: I reviewed the patient's medical records. - See Inquiry Pt receiving controlled substance: No Vital Signs: 04/10/21 12:28 Temperature 98 F Temperature Source Oral Pulse Rate [Left] 69 Respiratory Rate 18 Blood Pressure [Right Arm] 144/107 H Blood Pressure Mean [Right Arm] 119 02 Sat by Pulse Oximetry 99 - Lab Data Lab results reviewed: Yes: I reviewed the patient's lab results. Orders (Tests/Meds): ORDERS Category Date Time Status Covid-19 Nasal PCR ([facility]) Routine Lab 04/10/21 12:27 Received [facility] HPI - General Stated complaint: covid test/symptoms Time Seen by Provider: 04/10/21 12:43 Mode of Arrival: Ambulatory Source of Information: Patient Limitations: No Limitations Description of Symptoms (Recalled from Triage Doc. by RN): pt c/o n/v, MURRAY and loss of taste. HEENT Symptoms (Recalled from RN notes): Yes Resp Symptoms (Recalled from RN notes): No Skin Symptoms (Recalled from RN notes): No MS Symptoms (Recalled from RN notes): No Functional Status (Recalled from RN notes): wnl - History of Present Illness Provider Complaint: She states that for the past 2 days she has felt bad and had body aches. She has had a low grade fever, chills, scratchy sore thoat and chest congestion with a nonproductive cough. Both her and child have tested positive for covid-19 already. She has not been vaccinated against covid-19 or influenza. - Related Data Home Medications Medication Instructions Recorded Confirmed albuterol sulfate 90 mcg/actuation 2 inh INHALATION Q6H PRN 05/01/20 09/13/20 breath activated powder inhaler Previous Rx's Medication Instructions Recorded cholecalciferol (vitamin D3) 1,250 1,250 mcg PO WEEKLY #7 tab 08/29/20 mcg (50,000 unit) tablet cholecalciferol (vitamin D3) 50 50 mcg PO DAILY 30 Days #30 cap 08/29/20 mcg (2,000 unit) capsule Azithromycin [Z-Mukund 250mg Tab*] 250 mg PO UD DOSE PK #6 tab 03/22/21 Promethazine/Dextromethorphan 5 ml PO Q6HP PRN #240 ml 03/22/21 [Promethazine-Dm Syrup] guaiFENesin [Mucinex 600mg tablet] 1 - 2 tab PO BIDP PRN #30 tab 03/22/21 methylPREDNISolone [Medrol] 4 mg PO DIRECTED 6 Days #21 03/22/21 packet Azithromycin [Z-Mukund 250mg Tab*] 250 mg PO UD DOSE PK #6 tab 04/10/21 Benzonatate [Benzonatate 100mg 100 mg PO TIDP PRN #30 cap 04/10/21 cap] methylPREDNISolone [Medrol] 4 mg PO DIRECTED 6 Days #21 04/10/21 packet Allergies Allergy/AdvReac Type Severity Reaction Status Date / Time codeine Allergy Mild Verified 09/13/20 09:45 naproxen [From Aleve] Allergy Mild Verified 09/13/20 09:45 - Worker's Comp Is this a Worker's Comp case?: No [facility]
[2021-04-10 13:14] VITALS: BP 144/107; PULSE 69; RESP 18; TEMP 36.6
== END 2021-04-10 13:15 | disposition home or self-care (01) ==
PROVIDERS: Emergency Provider Nurse Practitioner Family; PCP Nurse Practitioner Family
DX: B34.9 Viral infection, unspecified (principal); Z20.822 Contact with and (suspected) exposure to COVID-19; F17.210 Nicotine dependence, cigarettes, uncomplicated
CPT/HCPCS: 99202; C9803; G0463; U0003; U0005

== ENCOUNTER 2021-07-09 17:19 | Emergency (ER) | payer OTHER, SELFPAY ==
[2021-07-09 17:21] VITALS: BP 109/71; PULSE 89; RESP 16; TEMP 36.8; O2SAT 98; BMI 30.1
--- NOTE | 2021-07-09 17:42 | HMH.EDGENADL ---
ED Disposition Condition on Discharge: Good - Critical Care Critical Care Time: No <Boom Foreman - Last Filed: 07/09/21 17:42> Condition on Discharge: Good Time of Disposition: 18:58 - Critical Care Critical Care Time: No <Amina Davila - Last Filed: 07/09/21 19:06> Clinical Impression: Lower abdominal pain, Enteritis Low back pain Qualifiers: Chronicity: acute Back pain laterality: right Sciatica presence: without sciatica Qualified Code(s): M54.50 - Low back pain, unspecified Disposition: Home, Self-Care Instructions: DI for Low Back Pain, Exercise May Reduce Risk of Low Back Pain Additional Instructions: You have been evaluated for lower abdominal, back pain. Diagnosed with inflammation of the colon, called enteritis. Likely also musculoskeletal pain. Please follow clear liquid diet and bland foods. Take Tylenol and Motrin for pain. Robaxin for muscle spasm. Follow-up with your primary care doctor in 1 to 2 days for symptom recheck. Return to the emergency department at once for any new or worsening symptoms, uncontrolled pain, vomiting, other concerns. Prescriptions: Ibuprofen [Ibuprofen 600mg Tablet] 600 mg PO Q8 #30 tab Transmission Status: Received by [facility] methocarbamoL [Methocarbamol] 750 mg PO Q8 PRN #12 tab PRN Reason: Muscle Spasm Transmission Status: Received by [facility] Referrals: Florencio Blanco MD [Primary Care Provider] - Forms: Work/School Release Attestation: On 07/09/21, the high probability of a clinically significant, sudden or life threatening deterioration of the following system(s) required my full and direct attention, intervention and personal management. The time I documented below is in addition to time spent performing reported procedures but includes the following listed in this critical care notation. Medical Decision Making - Medical Records Medical records reviewed: Yes: I reviewed the patient's medical records. - See Inquiry Pt receiving controlled substance: No <Boom Foreman - Last Filed: 07/09/21 17:42> - Lab Data Result diagrams: 07/09/21 17:50 07/09/21 17:50 <Amina Davila - Last Filed: 07/09/21 19:06> Vital Signs: 07/09/21 17:21 Temperature 98.2 F Temperature Source Oral Pulse Rate [Right Radial] 89 Respiratory Rate 16 Blood Pressure [Right Arm] 109/71 L Blood Pressure Mean [Right Arm] 83 Blood Pressure Source [Right Arm] Automatic Cuff Blood Pressure Position [Right Arm] Sitting 02 Sat by Pulse Oximetry 98 Oxygen Delivery Method Room Air - Lab Data Lab Results 07/09/21 17:50: Urine Color Yellow, Urine Appearance Clear, Urine pH 6.0, Ur Specific [place] >= 1.030, Urine Protein Negative, Urine Glucose (UA) Negative, Urine Ketones Negative, Urine Blood 3+, Urine Nitrate Negative, Urine Bilirubin Negative, Urine Urobilinogen 0.2, Ur Leukocyte Esterase Negative 07/09/21 17:50: WBC 6.1, RBC 4.50, Hgb 14.1, Hct 43.8, MCV 97.5, MCH 31.5 H, MCHC 32.3, RDW 14.2, Plt Count 355, MPV 8.3, Neut % (Auto) 41.5, Lymph % (Auto) 43.2, Blair % (Auto) 10.2 H, Eos % (Auto) 1.9, Baso % (Auto) 3.1 H, Neut # (Auto) 2.5, Lymph # (Auto) 2.6, Blair # (Auto) 0.6, Eos # (Auto) 0.1, Baso # (Auto) 0.2 07/09/21 17:50: Sodium 139, Potassium 3.7, Chloride 109 H, Carbon Dioxide 26, Anion Gap 7.7, BUN 9, Creatinine 0.70, Estimated Creat Clear 107, Estimated GFR 91, Est GFR ( Amer) 111, Glucose 105 H, Calcium 9.0, Total Bilirubin 0.2, AST 23, ALT 21, Alkaline Phosphatase 69, Total Protein 6.7, Albumin 4.0, Globulin 2.7, Albumin/Globulin Ratio 1.5 Orders (Tests/Meds): ED MEDICATIONS Generic Name Dose Route Start Last Admin Trade Name Freq PRN Reason Stop Dose Admin Sodium Chloride 10 ml 07/09/21 17:46 Sodium Chloride 0.9% 10ml Flush Syringe IV 08/08/21 17:45 NEEDED PRN Maintain IV Site Discontinued Medications Generic Name Dose Route Start Last Admin Trade Name Freq PRN Reason Stop Dose Admin
[2021-07-09 17:56] LABS: Microscopic, Urine URINE MICROSCOPIC (MICROSCOPIC)
[2021-07-09 17:58] LABS: Basophils # 0.2 K/mm3 (0-0.2); Basophils % 3.1 % (0.1-2.0); Eosinophils # 0.1 K/mm3 (0.0-0.4); Eosinophils % 1.9 % (0.1-12.0); Hematocrit 43.8 % (37.0-47.0); Hemoglobin 14.1 g/dL (12.2-16.2); Lymphocytes # 2.6 K/mm3 (0.7-4.5); Lymphocytes % 43.2 % (10-50); Mean Corpuscular HGB Conc 32.3 g/dL (31.8-35.4); Mean Corpuscular Hemoglobin 31.5 pg (27.0-31.2); Mean Corpuscular Volume 97.5 fl (81-99); Mean Platelet Volume 8.3 fl (7.4-10.4); Monocytes # 0.6 K/mm3 (0.1-1.0); Monocytes % 10.2 % (1.7-9.3); Neutrophils # 2.5 K/mm3 (1.8-7.8); Neutrophils % 41.5 % (37.0-80.0); Platelet Count 355 K/mm3 (142-424); Red Cell Distribution Width 14.2 % (11.5-17.5); White Blood Count 6.1 K/mm3 (4.8-10.8)
[2021-07-09 18:05] LABS: Chloride 109 mmol/L (98-107); Potassium 3.7 mmoL/L (3.5-5.1); Sodium 139 mmol/L (136-145)
[2021-07-09 18:08] LABS: Alanine Aminotransferase 21 U/L (12-78); Albumin/Globulin Ratio 1.5 (1.1-1.8); Alkaline Phosphatase 69 U/L (38-126); Anion Gap 7.7 mEq/L (5-15); Aspartate Amino Transferase 23 U/L (14-36); Bilirubin,Total 0.2 mg/dl (0.2-1.3); Blood Urea Nitrogen 9 mg/dl (7-17); Carbon Dioxide 26 mmol/L (22.0-30.0); Creatinine Clearance Estimated 107 mL/min (50-200); Estimated Glomerular Filt Rate 91 ml/min (>60); GFR (African American) 111 ML/MIN (>60); Globulin 2.7 g/dL (1.3-3.2); Total Protein,Serum 6.7 g/dl (6.3-8.2)
[2021-07-09 18:09] LABS: Glucose 105 mg/dl (74-100)
[2021-07-09 18:18] LABS: Appearance,Urine CLEAR (Clear); Bilirubin,Urine Negative (Negative); Blood, Urine 3+ (Negative); Color,Urine YELLOW (Yellow); Glucose,Urine (UA) Negative (Negative); Ketones,Urine Negative (Negative); Leukocyte Esterase,Urine Negative (Negative); Nitrate,Urine Negative (Negative); Protein,Urine Negative (Negative); Specific Gravity, Urine >= 1.030 (1.005-1.030); Urobilinogen,Urine 0.2 EU/dl (0.2)
--- NOTE | 2021-07-09 18:20 | CT_ITS ---
PROCEDURE INFORMATION: Exam: CT Abdomen And Pelvis With Contrast Exam date and time: 07/09/2021 6:29 PM Age: 41 years old Clinical indication: Abdominal pain; Localized; Right lower quadrant (rlq); Prior surgery; Surgery type: Tubal and gallbladder; Additional info: Rlq pain and right flank pain x 2 days with n/v/d TECHNIQUE: Imaging protocol: Computed tomography of the abdomen and pelvis with contrast. Radiation optimization: All CT scans at this facility use at least one of these dose optimization techniques: automated exposure control; mA and/or kV adjustment per patient size (includes targeted exams where dose is matched to clinical indication); or iterative reconstruction. Contrast material: ISOVUE; Contrast volume: 75 ml; Contrast route: IV; COMPARISON: ABDPELW CT abdomen pelvis w con 06/25/2018 10:35 PM FINDINGS: Liver: Unchanged left hepatic cystic lesion measuring 2.7 cm. Hepatic steatosis. Gallbladder and bile ducts: Gallbladder is absent. Pancreas: Normal. No ductal dilation. Spleen: Normal. No splenomegaly. Adrenal glands: Normal. No mass. Kidneys and ureters: Normal. No hydronephrosis. Stomach and bowel: Bowel wall thickening of portions of small bowel and colon. Appendix: Unremarkable appendix. Intraperitoneal space: Unremarkable. No free air. No significant fluid collection. Vasculature: Mild atherosclerotic changes of the arteries. Lymph nodes: Unremarkable. No enlarged lymph nodes. Urinary bladder: Unremarkable as visualized. Reproductive: Bilateral tubal ligation. Bones/joints: Unremarkable. No acute fracture. Soft tissues: Tiny fat containing umbilical hernia. Other findings: Stigmata of old granulomatous disease. IMPRESSION: 1. Bowel wall thickening of portions of small bowel and colon. This most likely represents enterocolitis. 2. Hepatic steatosis.
--- NOTE | 2021-07-09 18:29 | PC.NURSE ---
pt in ct
--- NOTE | 2021-07-09 18:36 | PC.NURSE ---
pt return from ct
[2021-07-09 19:35] LABS: Calcium Oxalate Crystals,Urine 2+ /lpf; Squamous Epithelial Cell,Urine Occasional #/hpf (0-5)
[2021-07-09 19:45] VITALS: BP 114/42; PULSE 79; RESP 16; TEMP 36.8; O2SAT 98
== END 2021-07-09 19:48 | disposition home or self-care (01) ==
PROVIDERS: Emergency Provider Emergency Medicine; PCP Emergency Medicine
DX: K52.9 Noninfective gastroenteritis and colitis, unspecified (principal); M54.50 Low back pain, unspecified; M51.36 Other intervertebral disc degeneration, lumbar region; M19.90 Unspecified osteoarthritis, unspecified site; E55.9 Vitamin D deficiency, unspecified; F17.210 Nicotine dependence, cigarettes, uncomplicated; Z79.1 Long term (current) use of non-steroidal anti-inflammatories (NSAID); Z79.51 Long term (current) use of inhaled steroids; Z79.52 Long term (current) use of systemic steroids; Z79.899 Other long term (current) drug therapy; Z88.5 Allergy status to narcotic agent; Z88.6 Allergy status to analgesic agent; Z82.49 Family history of ischemic heart disease and other diseases of the circulatory system; Z80.9 Family history of malignant neoplasm, unspecified
CPT/HCPCS: 74177; 80053; 81001; 85025; 96375; 99285; Q9967

== ENCOUNTER → 2021-08-28 14:51 | Outpatient (CLI) | payer OTHER, SELFPAY ==
--- NOTE | 2021-08-28 14:58 | MR_ITS ---
FINAL REPORT CLINICAL HISTORY: L Knee pain LEFT KNEE PAIN AND SWELLING X 1 WEEK KNEE INSTABILITY PAIN AROUND PATELLA AND POSTERIOR KNEE PAIN FINDINGS: Multiplanar MR imaging of the with left knee was performed without contrast. The medial and lateral menisci are intact without evidence of meniscal tear. The anterior and posterior cruciate ligaments are intact. The medial collateral ligament and lateral ligamentous complex are intact. The patellar and quadriceps tendons are intact. There is no evidence of fracture. There is mild patellar chondromalacia. Small joint effusion is seen. The musculature is intact. No soft tissue mass or cyst is identified. IMPRESSION: Mild patellar chondromalacia small joint effusion. Reviewed, Interpreted and Dictated by Jose Angel Villalta III, MD Transcribed by Kita Romano Authenticated and [facility]
== END ==
PROVIDERS: PCP Nurse Practitioner Family; Visit Provider Nurse Practitioner Family
DX: M25.562 Pain in left knee (principal)
CPT/HCPCS: 73721

== ENCOUNTER → 2021-08-30 09:53 | Outpatient (CLI) | payer OTHER, SELFPAY ==
--- NOTE | 2021-08-30 09:58 | XR_ITS ---
FINAL REPORT CLINICAL HISTORY: left knee pain COMPARISON: July 15, 2018 FINDINGS: LEFT KNEE: 4 views of the left knee obtained. There is no acute fracture or dislocation. The joint spaces are intact.. There is no soft tissue abnormality. IMPRESSION: No acute fracture Reviewed, Interpreted and Dictated by Jose Angel Villalta III, MD Transcribed by Dominga Whitaker Authenticated and [facility]
== END ==
PROVIDERS: PCP Nurse Practitioner Family; Visit Provider Orthopaedic Surgery
DX: M25.562 Pain in left knee (principal)
CPT/HCPCS: 73564

== ENCOUNTER 2021-08-30 12:45 | Outpatient (RCR) | payer OTHER, SELFPAY | END 2021-08-30 13:45 | disposition home or self-care (01) | LOC: PT 12:45 | PROVIDERS: Visit Provider Orthopaedic Surgery | DX: M25.562 Pain in left knee (principal) | CPT/HCPCS: 97760 ==

== ENCOUNTER → 2021-08-30 13:21 | Outpatient (CLI) | payer OTHER, SELFPAY | PROVIDERS: PCP Nurse Practitioner Family; Visit Provider Orthopaedic Surgery | DX: M25.562 Pain in left knee (principal) ==

== ENCOUNTER 2021-10-31 11:00 | Outpatient (RCR) | payer OTHER, SELFPAY ==
--- NOTE | 2021-09-23 15:00 | HMH.PTOPEV ---
PT Outpatient Evaluation Rehab PT Outpatient Evaluation Start: 09/23/21 13:49 Freq: Status: Active Protocol: Document 09/23/21 13:53 JANESSA (Rec: 09/23/21 14:59 JANESSA [id number]) Electronically Signed By Kenia Benavidezjoiedeanna, ASHOK 09/23/21 13:53 Outpatient Therapy Subjective History Subjective History Pt is a 41 y/o female that reports onset of L knee pain at the end of August of this year. Pt reports she is unsure of the PATY but worked all night then the next day her leg gave out on her while getting out of her car causing her to hit her knee on the threshold of her car. Pt also reports she has a pit bull who knocked her down a couple days prior but had no injury/ pain following that. Pt states she went to the ER after she hit her knee on the car due to pain. Pt had an MRI performed at [facility] on 08/28/21 without signs of meniscus or ligament damage or fractures just mild chondromalacia patella and contusion. Pt also had an xray performed at [facility] on 08/30/21 without signs of scute fractures. Pt received a cortisone injection in the left knee on 09/11/21 and reports it helped decrease pain and improve walking. Pt states she saw Dr. Lopez who gave her a brace and crutches that she used for 2 weeks prior to the injections. Pt states she used the brace during all ambulation or an andrew bandage if the brace was rubbing on the skin. Pt denies paresthesia. Pt states her thigh and entire leg swell throughout the day with increased activity. Pt states certain ways she steps causes bad pain with inability to move the leg. Pt reports intermittent sharp, sh
== END 2021-10-31 11:05 | disposition home or self-care (01) ==
LOC: PT 11:00
PROVIDERS: PCP Nurse Practitioner Family; Visit Provider Orthopaedic Surgery
DX: M25.562 Pain in left knee (principal); S80.02XA Contusion of left knee, initial encounter; M22.42 Chondromalacia patellae, left knee
CPT/HCPCS: 97035; 97110; 97140; 97163; 97530

== ENCOUNTER → 2021-12-11 11:48 | Outpatient (CLI) | payer OTHER, SELFPAY ==
--- NOTE | 2021-12-11 11:52 | XR_ITS ---
FINAL REPORT CLINICAL HISTORY: knee pain x 2 wks FINDINGS: RIGHT KNEE Four views of the right knee were obtained. There is no acute fracture or dislocation. Visualized joint spaces are normally aligned. Soft tissues are unremarkable. IMPRESSION: No acute bony abnormality. Reviewed, Interpreted and Dictated by Jose Angel Villalta III, MD Transcribed by Sandra Kearney Authenticated and [facility]
== END ==
PROVIDERS: PCP Nurse Practitioner Family; Visit Provider Orthopaedic Surgery
DX: M25.561 Pain in right knee (principal)
CPT/HCPCS: 73564

== ENCOUNTER → 2022-01-13 12:31 | Outpatient (POV) | payer OTHER, SELFPAY ==
[2022-01-13 13:10] VITALS: BP 151/73; PULSE 77; RESP 18; O2SAT 97; BMI 30.9
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
== END ==
PROVIDERS: PCP Nurse Practitioner Family; Visit Provider Nurse Practitioner Family
DX: M51.16 Intervertebral disc disorders with radiculopathy, lumbar region (principal); M25.561 Pain in right knee; M25.562 Pain in left knee; Z72.0 Tobacco use
CPT/HCPCS: 99212; G0463

== ENCOUNTER → 2022-01-16 10:20 | Outpatient (CLI) | payer OTHER, SELFPAY ==
[2022-01-16 15:10] LABS: Basophils # 0.1 K/mm3 (0-0.2); Basophils % 0.9 % (0.1-2.0); Eosinophils # 0.1 K/mm3 (0.0-0.4); Eosinophils % 0.9 % (0.1-12.0); Hematocrit 48.4 % (37.0-47.0); Hemoglobin 15.5 g/dL (12.2-16.2); Lymphocytes # 2.3 K/mm3 (0.7-4.5); Lymphocytes % 17.3 % (10-50); Mean Corpuscular HGB Conc 31.9 g/dL (31.8-35.4); Mean Corpuscular Hemoglobin 31.9 pg (27.0-31.2); Mean Corpuscular Volume 99.9 fl (81-99); Mean Platelet Volume 8.6 fl (7.4-10.4); Monocytes # 0.8 K/mm3 (0.1-1.0); Monocytes % 5.5 % (1.7-9.3); Neutrophils # 10.2 K/mm3 (1.8-7.8); Neutrophils % 75.4 % (37.0-80.0); Platelet Count 426 K/mm3 (142-424); Red Blood Count 4.85 M/mm3 (4.20-5.40); White Blood Count 13.5 K/mm3 (4.8-10.8)
[2022-01-16 15:40] LABS: Alanine Aminotransferase 20 U/L (12-78); Albumin Level 4.6 g/dl (3.5-5.0); Albumin/Globulin Ratio 1.8 (1.1-1.8); Alkaline Phosphatase 102 U/L (38-126); Anion Gap 14.5 mEq/L (5-15); Aspartate Amino Transferase 20 U/L (14-36); Bilirubin,Total 0.3 mg/dl (0.2-1.3); Blood Urea Nitrogen 7 mg/dl (7-17); Calcium 9.5 mg/dl (8.4-10.2); Carbon Dioxide 28 mmol/L (22.0-30.0); Chloride 101 mmol/L (98-107); Chol/HDL Ratio 4.2 (1-3.5); Cholesterol 205 mg/dl (140-200); Estimated Glomerular Filt Rate 109 ml/min (>60); GFR (African American) 132 ML/MIN (>60); Globulin 2.6 g/dL (1.3-3.2); Glucose 77 mg/dl (74-100); HDL Cholesterol 49 mg/dl (40-60); Potassium 4.5 mmoL/L (3.5-5.1); Sodium 139 mmol/L (136-145); Total Protein,Serum 7.2 g/dl (6.3-8.2); Triglycerides 134 mg/dl (30-150); VLDL Cholesterol 27 mg/dL (0-40)
[2022-01-16 15:51] LABS: Direct LDL Cholesterol 133.99 mg/dL (100-129)
[2022-01-16 15:57] LABS: Free T4 (Free Thyroxine) 1.07 ng/dl (0.78-2.19)
[2022-01-16 16:10] LABS: Thyroid Stimulating Hormone 1.27 uIU/mL (0.465-4.68)
== END ==
PROVIDERS: PCP Nurse Practitioner Family; Visit Provider Nurse Practitioner Family
DX: R53.83 Other fatigue (principal); I10 Essential (primary) hypertension
CPT/HCPCS: 80053; 80061; 84439; 84443; 85025

== ENCOUNTER 2022-02-04 13:27 | Day surgery (SDC) | payer OTHER, SELFPAY ==
[2022-02-04 13:41] VITALS: BP 117/74; PULSE 86; RESP 18; TEMP 36.9; O2SAT 98; BMI 30.5
[2022-02-04 14:06] VITALS: BP 102/64; PULSE 69; RESP 18; O2SAT 97
[2022-02-04 14:07] VITALS: BP 102/64; PULSE 69; RESP 18; O2SAT 97
[2022-02-04 14:17] VITALS: BP 103/49; PULSE 72; RESP 18; O2SAT 98
--- NOTE | 2022-02-04 14:18 | EXP.PAIN.PRO ---
Procedure Date: 02/04/22 Time: 14:10 Anesthesiologist:: Paul Belle CRNA Complications:: None Pre-procedure Diagnosis:: Osteoarthritis left knee. Chronic left knee pain Post-procedure Diagnosis:: Same. Indications for Procedure:: Patient is a pleasant 41-year-old female comes our clinic today for left genicular nerve nerve block. Patient has chronic knee pain she describes as constant, dull, sharp, stabbing. Patient has been to see orthopedic surgery. They recommend no surgery. Procedure Details:: Left knee genicular block Informed consent was obtained and the risk and benefits of the procedure was explained to the patient. The patient was taken to the procedure room. The left knee was prepped using ChloraPrep. I placed 22-gauge needles into the area of the left superior medial genicular nerve, left superior lateral genicular nerve and left inferior medial genicular nerve. Needle placement was confirmed in AP and lateral views with dye. We then injected bupivacaine 0.25% 3 mL's and Depo-Medrol 25 mg into each area of the left superior medial genicular nerve, left superior lateral genicular nerve and left inferior medial genicular nerve. Patient tolerated the procedure well with no complications. Plan and Disposition:: Patient was discharged without incident.
== END 2022-02-04 14:17 | disposition home or self-care (01) ==
PROVIDERS: PCP Nurse Practitioner Family; Visit Provider Nurse Anesthetist, Certified Registered
DX: M17.12 Unilateral primary osteoarthritis, left knee (principal); G89.29 Other chronic pain
CPT/HCPCS: 64454; J1040

== ENCOUNTER → 2022-03-13 13:00 | Outpatient (POV) | payer OTHER, SELFPAY ==
[2022-03-13 13:34] VITALS: BP 121/73; PULSE 77; RESP 18; O2SAT 98; BMI 28.4
--- NOTE | 2022-03-13 14:02 | EXP.PAIN.SOA ---
[facility] Pain Management SOAP Note Subjective:: Patient is a pleasant 42-year-old female who presents today for follow-up of left knee genicular nerve block. We are currently treating the patient for osteoarthritis left knee, chronic left knee pain. Today the patient rates her pain a 5 out of 10. Patient states following this injections she had 3 days of her index pain however after the 3 days she states she did have at least 50% improvement lasting up until the last few days. Patient states that the pain she experienced for the first 3 days is not worth having repeat injections. Patient does states that she would be willing to possibly do a second injection if she was getting pain medications for the first few days. Patient states she has tried over the counter Tylenol and ibuprofen with minimal improvement. Patient also states that she is also been prescribed diclofenac and Mobic in the past and neither of these provided any additional relief. 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 Her See is [id number]. Its been reviewed and appropriate. Review of Systems: General: No recent weight changes, no fever, no sleep disturbances Respiratory: No cough, no shortness of air, no recurring pulmonary infections Cardiovascular/peripheral vascular: No chest pain, no palpitations, no edema, no shortness of breath Gastrointestinal: No new onset incontinence, normal bowel movements reported Genitourinary: No new onset incontinence Musculoskeletal: Left knee pain Psychiatric: [Normal mood/affect] Neurological: [Denies weakness in extremities], [denies balance issues] Objective:: Physical Exam: General: Alert and oriented x3, no acute distress, pleasant and cooperative Lungs: Respirations even and unlabored, symmetrical chest expansion Eyes: PERRL Musculoskeletal: Flexion and extension of left knee somewhat guarded secondary to pain, [antalgic gait noted] Neurological: Speech clear, no gross sensory deficit ORT score updated with low risk of 1 Prescription drug abuse Assessment:: Osteoarthritis left knee, chronic left knee pain Plan:: Patient continues to experience significant pain in her left knee. At this time the patient is not interested in additional injective therapy. I have counseled the patient regarding trying Celebrex however she is not interested at this time. I will order the patient a compounding cream at today's visit. Patient will return to clinic in 1 month for reevaluation of symptoms and follow-up. Patient has been instructed to contact the clinic with any concerns before the next appointment. Dr. Segovia has reviewed this note and agrees with this plan of care. This note was dictated using voice recognition software and make contain errors or omissions. [facility] Disclaimer: The information contained in this section may have been updated after the patient was seen, as this information can be updated by other users. Medical History Chronic pain Family History Other No significant family history Social History Smoking Status: Current every day smoker tobacco type: cigarettes packs per day: 1 alcohol intake: current substance use type: denies use current occupational status: unemployed Travel in the last 8 weeks: None
== END ==
PROVIDERS: PCP Nurse Practitioner Family; Visit Provider Nurse Practitioner Family
DX: M17.12 Unilateral primary osteoarthritis, left knee (principal); G89.29 Other chronic pain
CPT/HCPCS: 99212; G0463

== ENCOUNTER 2022-04-25 14:10 | Outpatient (RCR) | payer OTHER, SELFPAY | END 2022-04-25 15:00 | disposition home or self-care (01) | LOC: PT 14:10 | PROVIDERS: Visit Provider Orthopaedic Surgery | DX: M22.42 Chondromalacia patellae, left knee (principal) | CPT/HCPCS: 97760 ==

== ENCOUNTER → 2022-06-18 09:45 | Outpatient (POV) | payer OTHER, SELFPAY ==
--- NOTE | 2022-06-18 09:58 | EXP.PAIN.SOA ---
[facility] Pain Management SOAP Note Subjective:: Patient is a pleasant 42-year-old female who presents today for follow-up.? We are currently treating the patient for osteoarthritis left knee, chronic left knee pain.? Today the patient rates her pain a 6 out of 10.? Patient denies any new trauma or injury. Patient denies any change to location or type of pain she experiences. She does state that her left knee continues to cause significant pain and that she has not been able to wear her brace due to soreness along the outer aspect of her left knee. Patient was prescribed compounding cream however she states it was not covered by her insurance and they would not take her higgins michelle as a form of payment. Patient did have a left knee genicular nerve block in January 2022. Patient has had multiple injections in her knee however she states she typically did not get long-lasting relief other than a few days. Patient has been to see Dr. Potter here at [facility] for her knee pain. She states he was not recommending surgery due to her concerns about being in so much pain and have to worry about being on pain medication. 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 She was prescribed Celebrex however it was not covered by her insurance so she is back to just using ibuprofen as needed.She does have a history of prescription drug use in her past over 8+ years ago. her See is [phone].? Its been reviewed and appropriate. Review of Systems: General: No recent weight changes, no fever, no sleep disturbances Respiratory: No cough, no shortness of air, no recurring pulmonary infections Cardiovascular/peripheral vascular: No chest pain, no palpitations,? no edema, no shortness of breath Gastrointestinal: No new onset incontinence, normal bowel movements reported Genitourinary: No new onset incontinence Musculoskeletal: Left knee pain Psychiatric: [Normal mood/affect] Neurological: [Denies weakness in extremities], [denies balance issues] Objective:: Physical Exam: General: Alert and oriented x3, no acute distress, pleasant and cooperative Lungs: Respirations even and unlabored, symmetrical chest expansion Eyes: PERRL Musculoskeletal: Flexion and extension of left knee somewhat guarded secondary to pain, [antalgic gait noted] Neurological: Speech clear, no gross sensory deficit Assessment:: Osteoarthritis left knee, chronic left knee pain Plan:: Patient continues to have significant left knee pain with limited range of motion of that joint. I have discussed with the patient that she may benefit from diclofenac gel topical I will order this during today's visit. I will also send her for a second opinion to Dr. Miquel Vazquez office for possible left knee replacement with anesthesia block. Patient will return to clinic in 1 month for reevaluation of symptoms and plan of care. Patient has been instructed to contact the clinic with any concerns before the next appointment. Dr. Segovia has reviewed this note and agrees with this plan of care. This note was dictated using voice recognition software and make contain errors or omissions. [facility] Disclaimer: The information contained in this section may have been updated after the patient was seen, as this information can be updated by other users. Medical History Chronic pain Family History Other No significant family history Social History Smoking Status: Current every day smoker tobacco type: cigarettes packs per day: 1 alcohol intake: current substance use type: denies use current occupational status: unemployed Travel in the last 8 weeks: None
[2022-06-18 10:02] VITALS: BP 122/72; PULSE 77; RESP 18; O2SAT 96; BMI 29.2
== END | disposition home or self-care (01) ==
PROVIDERS: PCP Nurse Practitioner Family; Visit Provider Nurse Practitioner Family
DX: M17.12 Unilateral primary osteoarthritis, left knee (principal); M25.562 Pain in left knee; G89.29 Other chronic pain
CPT/HCPCS: 99212; G0463

== ENCOUNTER → 2022-12-03 23:28 | Outpatient (CLI) | payer OTHER, SELFPAY ==
[2022-12-03 18:41] LABS: Basophils # 0.1 K/mm3 (0-0.2); Basophils % 0.5 % (0.1-2.0); Eosinophils # 0.2 K/mm3 (0.0-0.4); Eosinophils % 1.9 % (0.1-12.0); Hematocrit 45.7 % (37.0-47.0); Hemoglobin 14.5 g/dL (12.2-16.2); Lymphocytes % 34.9 % (10-50); Mean Corpuscular HGB Conc 31.8 g/dL (31.8-35.4); Mean Corpuscular Hemoglobin 30.8 pg (27.0-31.2); Mean Corpuscular Volume 96.9 fl (81-99); Mean Platelet Volume 8.4 fl (7.4-10.4); Monocytes # 0.5 K/mm3 (0.1-1.0); Monocytes % 6.2 % (1.7-9.3); Neutrophils # 4.9 K/mm3 (1.8-7.8); Neutrophils % 56.5 % (37.0-80.0); Platelet Count 384 K/mm3 (142-424); Red Blood Count 4.72 M/mm3 (4.20-5.40); Red Cell Distribution Width 13.7 % (11.5-17.5); White Blood Count 8.6 K/mm3 (4.8-10.8)
[2022-12-03 18:51] LABS: Alanine Aminotransferase 23 U/L (12-78); Albumin Level 4.4 g/dl (3.5-5.0); Albumin/Globulin Ratio 1.5 (1.1-1.8); Alkaline Phosphatase 64 U/L (38-126); Anion Gap 13.1 mEq/L (5-15); Aspartate Amino Transferase 25 U/L (14-36); Blood Urea Nitrogen 12 mg/dl (7-17); Calcium 9.5 mg/dl (8.4-10.2); Carbon Dioxide 24 mmol/L (22.0-30.0); Chloride 106 mmol/L (98-107); Chol/HDL Ratio 4.3 (1-3.5); Cholesterol 221 mg/dl (140-200); Estimated Glomerular Filt Rate 78 ml/min (>60); GFR (African American) 94 ML/MIN (>60); Globulin 2.9 g/dL (1.3-3.2); Glucose 75 mg/dl (74-100); HDL Cholesterol 51 mg/dl (40-60); Potassium 4.1 mmoL/L (3.5-5.1); Sodium 139 mmol/L (136-145); Total Protein,Serum 7.3 g/dl (6.3-8.2); Triglycerides 178 mg/dl (30-150); VLDL Cholesterol 36 mg/dL (0-40)
[2022-12-03 18:57] LABS: Bilirubin,Total 0.1 mg/dl (0.2-1.3)
[2022-12-03 19:01] LABS: Direct LDL Cholesterol 142.16 mg/dL (100-129)
[2022-12-03 19:07] LABS: 25-OH Vitamin D, Total 27.8 ng/mL (30-100)
[2022-12-03 19:21] LABS: Thyroid Stimulating Hormone 1.02 uIU/mL (0.465-4.68)
== END ==
LOC: LAB.DROPOF 23:28
PROVIDERS: PCP Nurse Practitioner Family; Visit Provider Nurse Practitioner Family
DX: M51.16 Intervertebral disc disorders with radiculopathy, lumbar region (principal); M25.561 Pain in right knee; M25.562 Pain in left knee; B34.9 Viral infection, unspecified; E55.9 Vitamin D deficiency, unspecified; E66.9 Obesity, unspecified; Z68.30 Body mass index [BMI] 30.0-30.9, adult; F17.200 Nicotine dependence, unspecified, uncomplicated; Z79.899 Other long term (current) drug therapy
CPT/HCPCS: 80053; 80061; 82306; 84443; 85025

== ENCOUNTER 2023-09-13 02:23 | Emergency (ER) | payer OTHER, SELFPAY ==
[2023-09-13 02:24] VITALS: BP 130/61; PULSE 87; RESP 22; TEMP 36.8; O2SAT 99; BMI 29.7
[2023-09-13 02:33] VITALS: BMI 29.7
[2023-09-13] MEDS: TET/DIPHTH/PERT-ADULT 0.5ML SYRINGE 0.5 ML IM (02:36)
[2023-09-13 02:54] VITALS: BP 127/78; PULSE 98; RESP 20; TEMP 36.8; O2SAT 99
[2023-09-13] MEDS: cephALEXin 500MG CAPSULE 500 MG PO (03:02)
--- NOTE | 2023-09-13 03:02 | ED_ITS ---
Discharge Plan Disposition Patient Disposition: Home, Self-Care Condition: Good Prescriptions Prescriptions: New cephalexin 500 mg capsule 500 mg PO QID 7 Days Qty: 28 0RF No Action sertraline 50 mg tablet PO methylprednisolone [Medrol (Mukund)] 4 mg tablets,dose pack See Rx Instructions PO PER PKG DIR Qty: 21 0RF Rx Instructions: PO PER PKG DIR cyclobenzaprine 5 mg tablet 5 mg PO BID PRN (Reason: muscle spasm) 7 Days Qty: 14 0RF hydroxyzine pamoate 25 mg capsule See Rx Instructions .ROUTE .COMPLEX Qty: 60 0RF Dose Instruction: TAKE 1 CAPSULE BY MOUTH THREE TIMES DAILY NEEDED FOR ITCHING Rx Instructions: TAKE 1 CAPSULE BY MOUTH THREE TIMES DAILY NEEDED FOR ITCHING Referrals Follow up/Referrals: Jeremy Gibbs APRN [Primary Care Provider] - See instructions Activity Restrictions/Add. Instructions Additional Instructions/Restrictions: You were evaluated in the ER. You are appropriate for discharge at this time. Take the prescribed antibiotics as directed, do not skip doses, do not stop taking them early. Keep the wound clean and dry, keep it covered with a Band-Aid. Have the stitches removed in 7 days. Follow-up with your primary care physician. Take Tylenol and ibuprofen if needed for pain, do not exceed the recommended doses on the bottles. Return to the ER with any new, worsening, or otherwise concerning symptoms including but not limited to signs of infection, pus, stitches tearing out, or fever. Clinical Impressions Clinical Impression: Laceration of left thumb Instructions Patient Instructions: DI for Laceration Repair Discharge ED Provider: Morteza Sesay Adult HPI General Chief complaint: Wound/Laceration Stated complaint: cut on left thumb Time Seen by Provider: 09/13/23 02:26 Mode of Arrival: Ambulatory Source of Information: Patient Limitations: No Limitations Description of Symptoms (Recalled from ER Triage Doc. by RN): Pt presents to ED for a R thumb laceration. Pt states she's not sure what happened but maybe she cut herself with a knife. Pt is A&O*4 at this time. MD is bedside. History of Present Illness HPI narrative: 43-year-old female presents to the ER for concerns of laceration to her left thumb. She admits she has been drinking quite a large amount and does not know how the injury happened but believes she may have cut it on a knife in the sink. Patient admits to drinking multiple alcoholic beverages tonight but does not recall any other trauma. She has no other injuries. She does not take any blood thinners. Related Data Home Medications Medication Instructions Recorded Confirmed sertraline 50 mg tablet mg PO 08/21/23 08/21/23 Previous Rx's Medication Instructions Recorded hydroxyzine pamoate 25 mg capsule See Rx Instructions .Route 02/06/23 .COMPLEX #60 caps cyclobenzaprine 5 mg tablet 5 mg PO BID PRN muscle spasm 7 08/21/23 days #14 tabs methylprednisolone 4 mg tablets in See Rx Instructions PO PER PKG DIR 08/21/23 a dose pack (Medrol (Mukund)) #21 tabs cephalexin 500 mg capsule 500 mg PO QID 7 days #28 caps 09/13/23 Allergies Allergy/AdvReac Type Severity Reaction Status Date / Time codeine Allergy Mild Verified 08/21/23 08:27 naproxen [From Aleve] Allergy Mild Verified 08/21/23 08:27 [facility] Disclaimer: The information contained in this section may have been updated after the patient was seen, as this information can be updated by other users. Medical History Chronic pain Family History Other No significant family history Social History Smoking Status: Current every day smoker tobacco type: cigarettes packs per day: 1 alcohol intake: current alcohol intake frequency: holidays/special occasions only substance use type: denies use current occupational status: unemployed Travel in the last 8 weeks: None ROS Obtained: Yes All systems reviewed & no additional complaints except as documented Integumentary/Breasts Skin/Breast: Reports wounds Physical Exam General General appearance: alert and in no apparent distress Head Head exam: atraumatic and normocephalic Eye Eye exam: Present PERRL and EOMI ENT ENT exam: Present mucous membranes moist Neck Neck exam: Present normal inspection and full ROM Chest Chest inspection: Present symmetric chest wall rise Respiratory Respiratory exam: Absent respiratory distress or stridor Cardiovascular Cardiovascular exam: Present regular rate and normal rhythm Extremities Exam Extremities exam: Present full ROM Neurological Exam Neurological exam: Present alert and oriented X3; Absent motor sensory deficit Psychiatric Psychiatric exam: Present normal affect and normal mood Skin Skin exam: Present warm, dry and other (Few superficial abrasions on the right shoulder, 2.5 centimeter laceration on the posterior aspect of the left thumb between the MCP and interphalangeal joint, does not cross the joint line, bleeding controlled, neurovascularly intact, flexion & extension intact) Medical Decision Making See Inquiry Pt receiving controlled substance: No Vital Signs: 09/13/23 02:24 09/13/23 02:54 Temperature 98.3 F 98.3 F Temperature Source Oral Oral Pulse Rate 98 H Pulse Rate [Left] 87 Respiratory Rate 22 20 Blood Pressure 127/78 Blood Pressure [Right Arm] 130/61 Blood Pressure Mean [Right Arm] 84 02 Sat by Pulse Oximetry 99 Oxygen Delivery Method Room Air Room Air Orders (Tests/Meds): ED MEDICATIONS Generic Name Dose Route Start Last Admin Trade Name Freq PRN Reason Stop Dose Admin Cephalexin HCl 500 mg 09/13/23 02:58 Cephalexin 500mg Capsule PO 09/13/23 02:59 ONCE ONE Discontinued Medications Generic Name Dose Route Start Last Admin Trade Name Freq PRN Reason Stop Dose Admin Tetanus/Reduced Diphtheria/Acell Pertussis 0.5 ml 09/13/23 02:33 09/13/23 02:36 Tet/Diphth/Pert-Adult 0.5ml Syringe IM 09/13/23 02:34 0.5 ml .ONCE ONE Administration Medical Decision Narrative: In summary, 43-year-old female presents to the ER for concerns of laceration of the left thumb. On arrival patient is hemodynamically stable, afebrile, she has obvious laceration to the posterior aspect of the left thumb that does not cross the joint line but did expose the extensor tendon. Tendon intact, neurovascularly intact. Patient admits to being intoxicated with alcohol but is alert and oriented, behaving appropriately. Differential diagnosis includes was not limited to laceration, I considered possibility of foreign body or fracture though there was no indication of this on exam, also considered possibility of tendon disruption but this was not appreciated on exam. Patient believes her last tetanus shot was sometime in the last 5 to 8 years, Tdap was administered. Laceration was repaired, see procedure note for details. Patient received dose of cephalexin in the ER for antibiotic prophylaxis given she is unsure exactly how the laceration happened. She was also prescribed this medication for outpatient management. She was given instructions on continued wound care, symptomatic management, follow-up instructions, suture removal instructions, and strict return precautions for the ER. She indicated understanding and was discharged in stable condition. Procedures Laceration Laceration 1: Site: thumb Side (If applicable): left Size (cm): 2.5 Description: linear Depth: involves subcutaneous layer Local Anesthetic: lidocaine 1% Amount of anesthesia used (mL): 2 Pre-repair: wound explored, irrigated extensively (With sterile water and Hibiclens) and deep structures intact (Able to visualize extensor tendon on the posterior aspect of the left thumb, it is fully intact without findings of it being violated, wound does not cross the joint lines) Skin layer closed with: nylon Size (cm): 4-0 Number of sutures: 7 Technique: simple, interrupted Subcutaneous layer closed with: chromic gut Size: 4-0 Number of sutures: 2 Technique: simple, interrupted Critical Care Critical Care Time Critical Care Time: No
== END 2023-09-13 03:11 | disposition home or self-care (01) ==
PROVIDERS: Emergency Provider Emergency Medicine; PCP Nurse Practitioner Family
DX: S61.012A Laceration without foreign body of left thumb without damage to nail, initial encounter (principal); W26.8XXA Contact with other sharp object(s), not elsewhere classified, initial encounter; Z23 Encounter for immunization
CPT/HCPCS: 12031; 90471; 90715; 99283

== ENCOUNTER 2024-06-12 19:27 | Emergency (ER) | payer OTHER, SELFPAY ==
[2024-06-12 19:35] VITALS: BP 139/81; PULSE 90; RESP 18; TEMP 36.9; O2SAT 98; BMI 30.3
[2024-06-12 19:40] VITALS: BP 139/81; PULSE 86; O2SAT 99
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
--- NOTE | 2024-06-12 19:56 | PC.NURSE ---
xray done at bedside
[2024-06-12] MEDS: ALBUTEROL-HFA 90MCG/PUFF INHALER 8GM 2 PUFF IH (19:58)
[2024-06-12] MEDS: AEROCHAMBER/OPTIHALER 1 UNIT MC (19:58)
[2024-06-12 20:19] LABS: Adenovirus,PCR Not Detected (NotDetected); Bordetella Pertussis Not Detected (NotDetected); Chlamydophila Pneumoniae, PCR Not Detected (NotDetected); Coronavirus 19, PCR Not Detected (NotDetected); Coronavirus 229E Not Detected (NotDetected); Coronavirus NL63 Not Detected (NotDetected); Coronavirus OC43 Not Detected (NotDetected); Coronovirus HKU1,PCR Not Detected (NotDetected); Human Metapneumovirus Not Detected (NotDetected); Influenza A, PCR Not Detected (NotDetected); Influenza AH1, 2009 Not Detected (NotDetected); Influenza AH1, PCR Not Detected (NotDetected); Influenza AH3,PCR Not Detected (NotDetected); Influenza B, PCR Not Detected (NotDetected); Mycoplasma Pneumoniae, PCR Not Detected (NotDetected); Parainfluenza 1, PCR Not Detected (NotDetected); Parainfluenza 2, PCR Not Detected (NotDetected); Parainfluenza 3, PCR Not Detected (NotDetected); Parainfluenza 4, PCR Not Detected (NotDetected); Respiratory Syncytial Virus Not Detected (NotDetected); Rhinovirus/Enterovirus Not Detected (NotDetected)
[2024-06-12 21:21] VITALS: BP 111/71; PULSE 70; RESP 16; TEMP 37.1; O2SAT 98
--- OUTSIDE RECORDS SUMMARY | 2024-06-16 20:03 | XMS_ITS | Data Portability ---
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 loss[place] [address] [place] [address], [phone], [facility] 03/16/2023 10:53:31 03/31/2023 text/html Presents to follow-up on anxiety and would like to review her recent lab results. She is a little aggravated right now about a different situation going on, so her blood pressure is a little higher than typical. States the medication has been working very well on her anxiety. States she is only needed to take hydroxyzine once since starting sertraline. Denies side effects. Labs with prediabetes noted. ASCVD 4%. MACHO STEPHENS MD [facility] [place], [phone], [facility] 03/31/2023 11:06:47 05/14/2023 text/html Presents with complaints of left arm pain. States that she felt yesterday when walking down the steps. States that she hit her forearm on the steps as she was falling. Complains of tenderness, swelling, and difficulty opening and closing her hand due to pain. States she has been using ice and heat as well as ibuprofen. She does report history of rash when taking naproxen but tolerates ibuprofen without any difficulties. She would also like to increase her sertraline for her anxiety. States she did have a recent panic attack that lasted longer than she expected. MACHO STEPHENS MD [address] [place], [phone], [facility] 05/14/2023 09:54:33 OBGyn Episode No OBEpisode recorded.
== END 2024-06-12 21:23 | disposition home or self-care (01) ==
PROVIDERS: Physician Assistant; Emergency Provider Emergency Medicine; PCP Nurse Practitioner Family
DX: S80.11XA Contusion of right lower leg, initial encounter (principal); M79.604 Pain in right leg; M79.671 Pain in right foot; M25.561 Pain in right knee; M25.551 Pain in right hip; M25.571 Pain in right ankle and joints of right foot; M79.672 Pain in left foot; M25.572 Pain in left ankle and joints of left foot; F17.210 Nicotine dependence, cigarettes, uncomplicated; V89.2XXA Person injured in unspecified motor-vehicle accident, traffic, initial encounter; Y93.9 Activity, unspecified
CPT/HCPCS: 71046; 73590; 73630; 87633; 99283